=== PATIENT | male | born 1950 | race Hispanic/Latino ===

== ENCOUNTER 2024-06-25 19:38 | Emergency (ER) | payer OTHER ==
[~2024-06-25] VITALS: Ht 170.2 cm; Wt 74.8 kg
[~2024-06-25 19:38] MED LIST: LATA2.5D14 OP; OMEP40CA21 PO; ROSU40TA88 PO
[2024-06-25] MEDS ORDERED: PANT40TA54 PO (20:10)
[2024-06-25] MEDS ORDERED: METO-408 PO (20:10)
[2024-06-25] MEDS ORDERED: CLOP75TA32 PO (20:10)
[2024-06-25] MEDS ORDERED: ATOR10 PO (20:10)
[2024-06-25 20:22] LABS: APPEARANCE,URINE CLEAR (CLEAR); BILIRUBIN,URINE NEGATIVE (NEGATIVE); COLOR,URINE COLORLESS (YELLOW); GLUCOSE, URINE (UA) NEGATIVE (NEGATIVE); KETONES,URINE NEGATIVE (NEGATIVE); LEUKOCYTE ESTERASE ,URINE NEGATIVE Leu/uL (NEGATIVE); NITRATE,URINE NEGATIVE (NEGATIVE); OCCULT BLOOD,URINE NEGATIVE (NEGATIVE); PH,URINE 7.5 (5.0-8.0); PROTEIN,URINE NEGATIVE (NEGATIVE); UROBILINOGEN,URINE 0.2 mg/dL (0.2-1.0)
[2024-06-25 20:24] LABS: ADD UA MICROSCOPIC YES; BACTERIA,URINE RARE /HPF (None Seen); RBC,URINE 0-1 /HPF (0-1)
--- NOTE | 2024-06-25 20:27 | NUR ---
TO CT AT THIS TIME
--- NOTE | 2024-06-25 20:51 | HMCIMG ---
CT HEAD/BRAIN W/O CONTRAST INDICATION: headache/hypertensive urgency TECHNIQUE: CT HEAD/BRAIN W/O CONTRAST. CT was performed with one or more of the following dose reduction techniques: Automated exposure control, adjustment of the mA and/or kV according to the patient's size, or use of the iterative reconstruction technique. Comparison: 07/13/2023. FINDINGS: Cerebral atrophy seen. Nonspecific periventricular and subcortical white matters changes are noted likely representing small vessel ischemic changes. No midline shift or herniation. No extra axial collection. No acute intracranial bleed. The visualized paranasal sinuses and mastoid air cells are normally aerated. IMPRESSION: Diffuse atrophy. No acute intracranial bleed is seen. Nonspecific white matter changes
--- NOTE | 2024-06-25 20:52 | ERN ---
General Chief Complaint: Hypertension Stated Complaint: C/O HIGH B/P WITH HEADACHE Time Seen by MD: 19:49 Time Seen by Midlevel: 19:49 Source: patient History of Present Illness Initial Comments The patient is a 73-year-old male presenting to the emergency department for evaluation of a headache and high blood pressure. The patient states he normally checks his blood pressure every morning and every afternoon. Today he decided to check his blood pressure and it was over 220 systolic. He developed a posterior headache so he decided to report to the ER for further evaluation. The patient does have a history of hypertension and normally takes 25 mg of metoprolol daily. He does report taking an extra dose after seeing a systolic blood pressure of 220. On arrival he continues with a persistent headache but denies any other symptoms. Allergies: Coded Allergies: aspirin (Unverified Allergy, Unknown, 07/12/23) Home Meds Reported Medications Metoprolol Succinate (Metoprolol Succinate) 25 Mg Tab.er.24h, 1 TAB PO DAILY for 30 Days, #30 TAB 0 Refills 06/25/24 Atorvastatin Calcium (LIPITOR) 20 Mg Tab, 1 TAB PO DAILY for 30 Days, #30 TAB 0 Refills 06/25/24 Pantoprazole Sodium (Pantoprazole Sodium) 40 Mg Tablet.dr, 1 TAB PO DAILY for 30 Days, #30 TAB 0 Refills 06/25/24 Clopidogrel Bisulfate (Clopidogrel) 75 Mg Tablet, 1 TAB PO DAILY for 30 Days, #30 TAB 0 Refills 06/25/24 Latanoprost (Latanoprost) 0.005 % Drops, 2.5 ML OP AD, DROP 07/13/23 Rosuvastatin Calcium (Rosuvastatin Calcium) 40 Mg Tablet, 40 MG PO HS, TAB 07/13/23 Omeprazole (Omeprazole) 40 Mg Capsule.dr, 40 MG PO DAILY, CAP 07/13/23 Past Medical History Past Medical History: High Cholesterol, Heart Disease, Hypertension Medical History Other: EYES Past Surgical History: Other Surgical History Other: TRIPLE BYPASS (2023) Family History Family History: HTN Social History Social History: Negative, Lives with family ROS Dictation CONSTITUTIONAL: Negative except for HPI HEAD/FACE: Negative except for HPI EENT: Negative except for HPI RESPIRATORY: Negative except for HPI GASTROINTESTINAL/ABDOMINAL: Negative except for HPI GENITOURINARY: Negative except for HPI MUSCULOSKELETAL: Negative except for HPI INTEGUMENTARY: Negative except for HPI NEUROLOGICAL/PSYCH: Negative except for HPI HEMATOLOGIC/LYMPHATIC: Negative except for HPI All Systems Negative, Except as noted above. 13 point review of systems assessed and all negative except for above. Physical Exam Physical Exam Dictation Vital Signs reviewed General Appearance: Alert, oriented x 3, no acute distress, well developed, nourished. Head and Face: non-traumatic. Eyes: PERRL, pink conjunctivas, eyelid no trauma, anterior chamber with arcus senilis. Ears: Pinnas intact and no signs of trauma or erythema ear canals clear and no discharge TM no erythema Nose: No discharge, no bleeding. Oropharynx: Mouth normal, tongue pink, pharynx clear,no erythema, tonsils no exudates, no abscesses noted, mucous membrane moist Neck: Supple, non-tender, no thyromegaly, no masses, no JVD, no bruits Breast:Deferred Chest:No tenderness, no crepitus, no paradoxical movement, no retractions Lungs:Clear, well-ventilated, symmetric, no rales, no wheezing, no rhonchi, no stridor, good breath sounds bilaterally Heart: Regular rate, regular rhythm, no murmur, no gallops Vascular: no peripheral edema, Abdomen: Soft, positive bowel sounds, nondistended, no guarding, nontender, no rebound, no masses no hepatomegaly, no splenomegaly, no Walters's sign, no hernias. Rectal: Deferred Genital: Deferred Neurological: Normal speech, motor function intact, sensory function intact Musculoskeletal: Neck nontender, full range of motion, back nontender, full range of motion, Extremities: nontender, full range of motion Skin: Color pink, dry, no turgor, no rash, no lacerations, no abrasions, no contusions. Lymphatic: Deferred Results Laboratory and Microbiology Lab and Micro Result Laboratory Tests Test 06/25/24 19:45 06/25/24 20:42 Urine Color COLORLESS (YELLOW) Urine Appearance CLEAR (CLEAR) Urine pH 7.5 (5.0-8.0) Urine Specific [place] 1.007 (1.001-1.031) Urine Protein NEGATIVE mg/dL (NEGATIVE) Urine Glucose (UA) NEGATIVE mg/dL (NEGATIVE) Urine Ketones NEGATIVE mg/dL (NEGATIVE) Urine Occult Blood NEGATIVE (NEGATIVE) Urine Nitrate NEGATIVE (NEGATIVE) Urine Bilirubin NEGATIVE mg/dL (NEGATIVE) Urine Urobilinogen 0.2 mg/dL (0.2-1.0) Urine Leukocyte Esterase NEGATIVE [place]/uL Urine RBC 0-1 /HPF (0-1) Urine WBC 2-5 /HPF (0-1) H Urine Bacteria RARE /HPF (None Seen) White Blood Count 9.5 K/uL (4.8-10.8) Red Blood Count 4.50 MIL/uL (4.50-6.20) Hemoglobin 13.4 g/dL (14.0-18.0) L Hematocrit 41.5 % (42-54) L Mean Corpuscular Volume 92.2 fL (79-99) Mean Corpuscular Hemoglobin 29.8 pg (27.0-33.0) Mean Corpuscular Hemoglobin Concent 32.3 g/dL (32.0-36.0) Red Cell Distribution Width 15.9 % (11.0-15.5) H Platelet Count 149 K/uL (130-400) Mean Platelet Volume 9.5 fL (7.5-10.5) Immature Granulocyte % (Auto) 0.6 % (0-1) Neutrophils (%) (Auto) 84.1 % (40.0-77.0) H Lymphocytes (%) (Auto) 7.3 % (21.0-51.0) L Monocytes (%) (Auto) 6.8 % (3.0-13.0) Eosinophils (%) (Auto) 0.8 % (0.0-8.0) Basophils (%) (Auto) 0.4 % (0.0-5.0) Neutrophils # (Auto) 7.9 K/uL (1.8-7.7) H Lymphocytes # (Auto) 0.7 K/uL (1.0-4.8) L Monocytes # (Auto) 0.6 K/uL (0.1-1.0) Eosinophils # (Auto) 0.08 K/uL (0.00-0.70) Basophils # (Auto) 0.04 K/uL (0.00-0.20) Absolute Immature Granulocyte (auto 0.06 K/uL (0-1) Nucleated Red Blood Cells 0.0 % (0.0-0.19) White Cell Morphology Comment See comments Sodium Level 140 mmol/L (136-145) Potassium Level 3.5 mmol/L (3.5-5.1) Chloride Level 100 mmol/L (101-111) L Carbon Dioxide Level 30 mmol/L (21-32) Blood Urea Nitrogen 15 mg/dL (7-18) Creatinine 0.9 mg/dL (0.5-1.3) Glomerular Filtration Rate Calc 91 mL/min (>90) Random Glucose 132 mg/dL (70-105) H Total Calcium 9.0 mg/dL (8.5-10.1) Magnesium Level 1.90 mg/dL (1.80-2.40) Total Creatine Kinase 251 U/L (21-232) H Troponin I High Sensitivity 17.6 ng/L (4-75) B-Type Natriuretic Peptide 63 pg/mL (0-100) Labs Reviewed?: Yes MDM MDM: 73-year-old male with a past medical history of triple bypass, hypertension, and hyperlipidemia presenting to the ER for evaluation of an elevated blood pressure reading at home. Patient reports developing a headache and then checked his blood pressure and it was over 200 systolic. He normally takes 25 mg of metoprolol daily but decided to take an extra pill. On arrival he does report a headache but denies any other symptoms. Initial blood pressure here was elevated . cardiac workup was initiated EKG shows normal sinus rhythm with no ST elevations or bundle branch blocks noted. Chest x-ray shows no acute cardiopulmonary abnormality. CBC and chemistries are stable. Cardiac enzymes are negative. CT scan of the head does not show any evidence of an acute intracranial bleed. Patient was observed in the ER at his remained stable and asymptomatic. His blood pressure trending downwards to 130 systolic. Patient will be discharged home with outpatient follow up. The patient will most likely need to see his primary care doctor and/or bicycle courier for medication adjustment. The patient agrees with this plan and all questions have been answered. Differential diagnosis: Acute coronary syndrome, hypertensive urgency, hypertensive emergency There are no social concerns with this patient. Prescription drug management Prescriptions will include: None Medical management and examination interpretation discussions were had by me with other qualified healthcare professionals as indicated for the patient's care. ED Course Orders Procedure Category Date Status Time 12 Lead Ekg Tracing- EKG 06/25/24 Logged Technical 19:59 B-Type Natriuretic LAB 06/25/24 Complete Peptide 20:02 Cbc With Differential LAB 06/25/24 Complete 20:02 Basic Metabolic Panel LAB 06/25/24 Complete 20:02 Magnesium LAB 06/25/24 Complete 20:02 Urinalysis Profile LAB 06/25/24 Complete 20:02 Chest 1vw RAD 06/25/24 Resulted 20:02 Ct Head/Brain W/O CT 06/25/24 Resulted Contrast 20:03 Cardiac Panel LAB 06/25/24 Complete 20:02 Acetaminophen 325 Tab PHA 06/25/24 Complete (Tylenol 325mg Tab 22:00 Current Medications Medications (Trade) Dose Ordered Sig/Kana Route PRN Reason Start Time Stop Time Status Last Admin Dose Admin Acetaminophen (TYLenol 325MG TAB) 650 mg ONCE ONCE PO 06/25/24 22:00 06/25/24 21:42 DC 06/25/24 21:39 Vital Signs Date Time Temp Pulse Resp B/P (MAP) Pulse Ox O2 Delivery O2 Flow Rate FiO2 06/25/24 20:57 98.1 95 18 135/91 95 Room Air* 0 21 06/25/24 20:12 97.9 78 18 170/76 98 Room Air* 0 21 06/25/24 19:42 98.2 89 20 195/97 98 Room Air DX & DISP Disposition: Discharge Departure Impression: Primary Impression: Elevated blood pressure reading Condition: Stable Additional Instructions: Your blood work today is unremarkable. Your blood pressure in the emergency department has remained stable. A cardiac workup was performed which was unremarkable. Your troponin level and EKG did not show any acute abnormalities. Your chest x-ray is normal. Your CT scan of the head does not show any evidence of an intracranial bleed. You will need to follow up with your bicycle courier outpatient for possible medication adjustment to your antihypertensives. If you develop any new or worsening symptoms please report to the ER for further evaluation. Continue to monitor your blood pressure at home. Referrals: SELF,REFERRAL (PCP) Time of Disposition: 21:37 I have reviewed the case, and I agree with, Diagnosis and Plan I performed the substantive portion of the visit. I have reviewed and pe rsonally made and approve the management plan that is documented in the note by myself or the AYAZ. I acknowledge for responsibility for the patient's management plan. EDIWNA KILPATRICK Jun 25, 2024 20:52
--- NOTE | 2024-06-25 20:52 | HMCIMG ---
INDICATION: sob TECHNIQUE: CHEST 1VW COMPARISON: 07/21/2023 FINDINGS AND IMPRESSION: Prominent bilateral interstitial markings which may represent bronchitis or vascular congestion in the proper clinical setting. Cardiac silhouette is within normal limits. Degenerative changes of the spine.. CABG changes are seen. The visualized upper abdomen appears unremarkable.
[2024-06-25 20:53] LABS: BASOPHILS # (AUTO) 0.04 K/uL (0.00-0.20); BASOPHILS % (AUTO) 0.4 % (0.0-5.0); EOSINOPHILS # (AUTO) 0.08 K/uL (0.00-0.70); EOSINOPHILS % (AUTO) 0.8 % (0.0-8.0); HEMATOCRIT 41.5 % (42-54); IMMATURE GRANULOCYTE ABSOLUTE 0.06 K/uL (0-1); LYMPHOCYTES # (AUTO) 0.7 K/uL (1.0-4.8); LYMPHOCYTES % (AUTO) 7.3 % (21.0-51.0); MEAN CORPUSCULAR HEMOGLOBIN 29.8 pg (27.0-33.0); MEAN CORPUSCULAR HGB CONC 32.3 g/dL (32.0-36.0); MEAN CORPUSCULAR VOLUME 92.2 fL (79-99); MONOCYTES # (AUTO) 0.6 K/uL (0.1-1.0); MONOCYTES % (AUTO) 6.8 % (3.0-13.0); NEUTROPHILS # (AUTO) 7.9 K/uL (1.8-7.7); NEUTROPHILS % (AUTO) 84.1 % (40.0-77.0); PLATELET COUNT (AUTO) 149 K/uL (130-400); RED CELL DISTRIBUTION WIDTH 15.9 % (11.0-15.5); WHITE BLOOD COUNT (AUTO) 9.5 K/uL (4.8-10.8)
[2024-06-25 20:57] VITALS: BP 135/91; PULSE 95; RESP 18; TEMP 98.1; O2SAT 95
[2024-06-25 20:58] LABS: CREATININE 0.9 mg/dL (0.5-1.3); POTASSIUM 3.5 mmol/L (3.5-5.1)
[2024-06-25 21:05] LABS: MAGNESIUM 1.9 mg/dL (1.80-2.40)
[2024-06-25 21:12] LABS: B-TYPE NATRIURETIC PEPTIDE 63 pg/mL (0-100)
[2024-06-25] MEDS: acetaMINOPHEN 325 MG TAB PO ONE (21:39)
--- NOTE | 2024-06-26 06:41 | EKG ---
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
== END 2024-06-25 21:42 | disposition home or self-care (01) ==
LOC: EDH 19:38
DX: I10 Essential (primary) hypertension (principal); E78.00 Pure hypercholesterolemia, unspecified; Z79.02 Long term (current) use of antithrombotics/antiplatelets; Z79.899 Other long term (current) drug therapy; Z88.6 Allergy status to analgesic agent; Z95.1 Presence of aortocoronary bypass graft
CPT/HCPCS: 36415; 70450; 71045; 80048; 81001; 82550; 83735; 83880; 84484; 85025; 93005; 99285